=== PATIENT | male | born 1995 | race Caucasian/White ===

== ENCOUNTER → 2016-10-21 | Outpatient (CLI) | payer OTHER ==
--- NOTE | 2016-10-21 08:50 | KCIC ---
PROCEDURE MRI brain without contrast. HISTORY Persistent headaches, chronic headaches TECHNIQUE Sagittal and axial T1, axial and coronal T2, axial diffusion, axial FLAIR, and axial gradient echo T2 weighted images were acquired of the brain. COMPARISON None FINDINGS Ventricles, sulci, cisterns are within normal limits in size configuration. No intra-axial mass effect, midline shift, extra-axial fluid collection. There is no significant hemosiderin deposition of brain parenchyma. There are a couple small foci of nonspecific T2 and FLAIR hyperintense signal abnormality of the right frontal peripheral deep and subcortical white matter. There is preservation of the major arterial intracranial flow voids at the skull base. There is symmetric prominence of the tonsils bilaterally. There are mucous retention cysts of the maxillary sinuses bilaterally greater on the left, up to 2.6 cm on the left. There is variable left maxillary sinus mucosal thickening. There are no air-fluid levels of the visualized paranasal sinuses. Cerebellar tonsils are normal in location. There is preservation of the marrow signal clivus. There is no significant abnormality of the pineal gland or pituitary gland. There are several small nonspecific nodes of the visualized superior bilateral neck. IMPRESSION 1. Other than a couple of tiny foci of nonspecific likely gliosis of the right frontal white matter, there is no significant intracranial abnormality. White matter changes can be seen in patients with migraine headaches. 2. There are mucous retention cysts of the maxillary sinuses bilaterally, variable left maxillary sinus mucosal thickening. 3. There is nonspecific enlargement of the tonsils bilaterally, clinical evaluation advised. There are several small nonspecific nodes of the visualized bilateral neck. Electronically signed by: Benoit Davison MD (Oct 21, 2016 08:49:03)
== END | disposition home or self-care (01) ==
LOC: KCIC MRI 08:01
PROVIDERS: ATTEND Family Medicine
DX: R51 Headache (principal)
CPT/HCPCS: 70551